=== PATIENT | female | born 1975 | race Caucasian/White ===

== ENCOUNTER → 2018-04-19 | Outpatient (CLI) | payer BC ==
--- NOTE | 2018-04-23 11:17 | MM ---
Reason for exam: screening (asymptomatic). Last mammogram was performed 3 years and 1 month ago. History: Took hormonal contraceptives for 5 years. Physical Findings: A clinical breast exam by your physician is recommended on an annual basis and results should be correlated with mammographic findings. MG 3D Screening Mammo W/Cad Bilateral CC and MLO view(s) were taken. XCCL view(s) were taken of the right breast. Prior study comparison: March 11, 2015, left breast MG work up mamm w CAD LT. March 04, 2015, bilateral MG screening mammo w CAD. There are scattered fibroglandular densities. There is chronic nodularity in the right breast. No significant changes when compared with prior studies. ASSESSMENT: Negative, BI-RAD 1 RECOMMENDATION: Routine screening mammogram of both breasts in 1 year.
== END | disposition home or self-care (01) ==
LOC: RADMAMWWP 07:02
PROVIDERS: ATTEND Family Medicine
DX: Z12.31 Encounter for screening mammogram for malignant neoplasm of breast (principal)
CPT/HCPCS: 77063; 77067

== ENCOUNTER → 2021-03-02 | Outpatient (CLI) | payer OTHER ==
--- NOTE | 2021-03-07 08:22 | MM ---
Reason for exam: screening (asymptomatic). Last mammogram was performed 2 years and 10 months ago. History: Took hormonal contraceptives for 5 years. Physical Findings: A clinical breast exam by your physician is recommended on an annual basis and results should be correlated with mammographic findings. MG Screening Mammo w CAD Bilateral CC and MLO view(s) were taken. Prior study comparison: April 19, 2018, bilateral MG 3d screening mammo w/cad. March 11, 2015, left breast MG work up mamm w CAD LT. There are scattered fibroglandular densities. No significant changes when compared with prior studies. ASSESSMENT: Benign, BI-RAD 2 RECOMMENDATION: Routine screening mammogram of both breasts in 1 year.
== END | disposition home or self-care (01) ==
LOC: RADMAMWWP 14:52
PROVIDERS: ATTEND Family Medicine
DX: Z12.31 Encounter for screening mammogram for malignant neoplasm of breast (principal); Z79.3 Long term (current) use of hormonal contraceptives
CPT/HCPCS: 77067

== ENCOUNTER → 2022-03-14 | Outpatient (CLI) | payer OTHER ==
--- NOTE | 2022-03-14 14:54 | XR ---
Bilateral feet and bilateral ankles HISTORY: M0609 M542 [id number] 3 views of the right foot, 3 views the left foot, 3 views of the right ankle, 3 views of the left ank le submitted Bone mineralization, joint spaces and alignment are maintained. No evident fracture or dislocation. A ccessory navicular bone is noted within the right foot. No evident bone erosions. Some spurring noted at the talonavicular joint on the right. IMPRESSION: Normal feet and ankles
--- NOTE | 2022-03-14 15:02 | XR ---
Bilateral wrists and bilateral hands HISTORY: M0609 M542 M5459 4 views of each wrist, 3 views of each hand submitted Bone mineralization, joint spaces and alignment are maintained. No fracture or dislocation. IMPRESSION: Normal wrists and hands
--- NOTE | 2022-03-14 15:09 | XR ---
Lumbosacral spine HISTORY: M0609 M542 [id number] 5 views of lumbosacral spine Lumbar vertebral bodies show preserved height, alignment, and bone mineralization. No evident spondyl olysis or spondylolisthesis. Spondylosis is present at multiple levels, loss of disc height present L 2-3 and L3-4, L5-S1. Sclerosis in the posterior elements of the lower lumbar spine is consistent with facet arthropathy. Minimal retrolisthesis grade 1 L5-S1. IMPRESSION: Degenerative disc disease and facet arthropathy.
--- NOTE | 2022-03-14 15:38 | XR ---
Cervical spine HISTORY: M0609 M567 [id number] 5 views of the cervical spine There is spondylosis at C4-5, C5-6 with associated loss of disc height, there is reversal the normal cervical lordosis. Prevertebral soft tissues are normal. Cervical vertebral bodies show preserved hei ght and bone mineralization. No fracture or subluxation. Suspect some mild foraminal encroachment C5- 6 bilaterally. IMPRESSION: Degenerative disc disease, neural foraminal encroachment, reversal of normal cervical lara dosis can be seen in patients with muscle spasm.
--- NOTE | 2022-03-14 15:39 | XR ---
AP pelvis HISTORY:M0609 M542 M5459 Frontal view the pelvis, no comparisons Bone mineralization, joint spaces and alignment are maintained. Sacroiliac joints are intact. Probabl e vascular calcifications noted within the pelvis. There may be a slight lumbar spinal curvature. IMPRESSION: No significant abnormalities are evident.
== END | disposition home or self-care (01) ==
LOC: RADXRMAIN 13:09
PROVIDERS: ATTEND Internal Medicine Rheumatology
DX: M06.09 Rheumatoid arthritis without rheumatoid factor, multiple sites (principal); M51.26 Other intervertebral disc displacement, lumbar region; M47.816 Spondylosis without myelopathy or radiculopathy, lumbar region; M50.30 Other cervical disc degeneration, unspecified cervical region; M99.71 Connective tissue and disc stenosis of intervertebral foramina of cervical region
CPT/HCPCS: 72050; 72110; 72170

== ENCOUNTER → 2023-10-12 | Outpatient (CLI) | payer BC ==
[2023-10-12 15:08] LABS: Basophils # (A) 0.06 X 10*3/uL (0.00-0.10); Basophils % (A) 0.8 %; Eosinophils # (A) 0.12 X 10*3/uL (0.04-0.35); Eosinophils % (A) 1.5 %; HCT 43.5 % (37.2-46.3); HGB 14.7 g/dL (12.0-15.0); Lymphocytes # (A) 2.86 X 10*3/uL (0.90-5.00); Lymphocytes % (A) 35.8 %; MCH 31.2 pg (27.0-32.0); MCHC 33.8 g/dL (32.0-37.0); MCV 92.4 FL (80.0-97.0); Mean Platelet Volume 10.7 FL (9.5-12.2); Monocytes # (A) 0.46 X 10*3/uL (0.20-1.00); Monocytes % (A) 5.8 %; NRBC Per 100 WBC 0 X 10*3/uL (0.00-0.01); Neutrophils # (A) 4.47 X 10*3/uL (1.80-7.70); Neutrophils % (A) 55.8 %; Platelet Count 305 X 10*3/uL (140-440); RBC 4.71 X 10*6/uL (4.10-5.20); RDW 13.2 % (11.5-14.5); WBC 7.99 X 10*3/uL (4.50-10.00)
== END | disposition home or self-care (01) ==
LOC: LABPAT 10:58
PROVIDERS: ATTEND Obstetrics & Gynecology
DX: Z01.818 Encounter for other preprocedural examination (principal); R94.31 Abnormal electrocardiogram [ECG] [EKG]; R00.1 Bradycardia, unspecified
CPT/HCPCS: 36415; 85025; 93005

== ENCOUNTER 2023-10-22 07:04 | Day surgery (SDC) | payer BC, OTHER ==
[2023-10-18 11:38] VITALS: BMI 37.5
--- NOTE | 2023-10-21 10:51 | P.HPOB ---
History of Present Illness H&P Date: 10/21/23 Chief Complaint: Menorrhagia with irregular cycle This is a 48-year-old female 3 para 3 who presents for dilation and curettage with hysteroscopy due to endometrial thickening on ultrasound and menorrhagia with irregular cycle. She stated she had regular cycles up until May and then started to have 2 cycles a month. When she called in early September, she had been bleeding for 3 weeks with heavy flow and some tissue like discharge. She also complained of a lot of pelvic pressure and worsening leakage with coughing. Her pelvic ultrasound showed a uterus measuring 13 x 6.4 x 6.1 cm with an endometrial thickness of 1.73 cm. She did have 2 fibroids 1 was 3.4 cm on the left subserosal area and another 1 was 1.3 cm in the intramural posterior area. She also had a simple 2 cm left ovarian cyst. The patient does have a history of a previous endometrial ablation in 2010. Obstetrical history: . History of 3 vaginal deliveries. Gynecologic history: No history of sexually transmitted diseases. She does have a history of a tubal ligation and endometrial ablation. Social history: She is . She works in occupational therapy. Review of Systems Constitutional: Reports fatigue, Denies chills, Denies fever Eyes: denies blurred vision, denies pain Ears, nose, mouth and throat: Reports headache, Reports vertigo, Denies sore throat Cardiovascular: Denies chest pain, Denies shortness of breath Respiratory: Denies cough Gastrointestinal: Denies abdominal pain, Denies diarrhea, Denies nausea, Denies vomiting Genitourinary: Reports menorrhagia Menstruation: Reports menses 8 or > days, Reports menses variable, Reports period heavy Musculoskeletal: Reports myalgias Integumentary: Denies pruritus, Denies rash Psychiatric: Reports anxiety, Reports irritability Past Medical History Past Medical History: Diabetes Mellitus, Hypertension, Rheumatoid Arthritis (RA) Additional Past Medical History / Comment(s): takes metformin as a "preventative" for diabetes History of Any Multi-Drug Resistant Organisms: ESBL Date of last positivie culture/infection: 06/09/21 MDRO Source:: ESBL URINE Past Surgical History: Orthopedic Surgery, Tubal Ligation, Uterine Ablation Additional Past Surgical History / Comment(s): lasik eye surgery, Rt. knee arthroscopy x 2 Past Anesthesia/Blood Transfusion Reactions: No Reported Reaction Past Psychological History: Anxiety Smoking Status: Never smoker Past Alcohol Use History: Occasional Past Drug Use History: None Reported - Past Family History Father Family Medical History: No Reported History Medications and Allergies Home Medications Medication Instructions Recorded Confirmed Type Cholecalciferol (Vitamin D3) 1,250 mcg PO Q7D 10/18/23 10/18/23 History [Vitamin D3 (1250 Mcg = 50,000 Iu)] Metoprolol Succinate (ER) [Toprol 100 mg PO DAILY 10/18/23 10/18/23 History Xl] lisinopriL [Zestril] 5 mg PO DAILY 10/18/23 10/18/23 History metFORMIN HCL ER [Glucophage XR] 500 mg PO DAILY 10/18/23 10/18/23 History Allergies Allergy/AdvReac Type Severity Reaction Status Date / Time No Known Allergies Allergy Verified 10/18/23 10:59 Exam Osteopathic Statement: *. No significant issues noted on an osteopathic structural exam other than those noted in the History and Physical/Consult. HEENT: Within normal limits Heart: Regular rate and rhythm Lungs: Clear to auscultation bilaterally Abdomen: Soft, nontender Pelvic exam: Uterus is slightly enlarged, nontender, with no adnexal masses or tenderness noted. She did have a first-degree cystocele with slightly hypermobile urethra with Valsalva. Extremities: Negative Homans Assessment and Plan (1) Menorrhagia with irregular cycle Status: Acute Code(s): N92.1 - EXCESSIVE AND FREQUENT MENSTRUATION WITH IRREGULAR CYCLE SNOMED Code(s): 613216995 (2) Endometrial thickening on ultrasound Status: Acute Code(s): R93.89 - ABNORMAL FINDINGS ON DX IMAGING OF OTH BODY STRUCTURES SNOMED Code(s): 235925305 Plan: Proceed with dilation and curettage with hysteroscopy. I have discussed the risks, benefits, and alternative therapies for the above- mentioned procedure and for both sedation/anesthesia as well as necessary blood products administration, if indicated, as they pertain to this patient. The patient has indicated her understanding and acceptance of the risks and procedures discussed.
[~2023-10-22 07:04] MED LIST: Pre Op ABX Message 1 EACH MISC MISCELLANE ONE
[2023-10-22 07:39] LABS: Glucose,Whole Blood 108 mg/dL (70-110)
[2023-10-22] MEDS: ONDANSETRON 4 MG/2 ML VIAL ONE (07:41)
[2023-10-22] MEDS: LACTATED RINGERS 1,000 ML IV ONE (07:41)
[2023-10-22] MEDS: DEXAMETHASONE SOD PHOSPHATE 4 MG/ML 1 ML VIAL IVP ONE (07:42)
[2023-10-22] MEDS ORDERED: LIDOCAINE 1% INJ 10MG/ML (20 ML MDV) ONE (08:15)
[2023-10-22] MEDS ORDERED: KETOROLAC 15 MG/ML 1 ML VIAL ONE (08:15)
[2023-10-22] MEDS ORDERED: PROPOFOL 10 MG/ML 20 ML VIAL IV ONE (08:15)
[2023-10-22] MEDS ORDERED: MIDAZOLAM 2 MG/2 ML VIAL ONE (08:15)
[2023-10-22 08:32] VITALS: RESP 16
--- NOTE | 2023-10-22 08:47 | P.OP ---
Date of Procedure: 10/22/23 Preoperative Diagnosis: Menorrhagia with irregular cycle Endometrial thickening on ultrasound History of previous endometrial ablation Postoperative Diagnosis: Same Procedure(s) Performed: Dilation and curettage with hysteroscopy Anesthesia: SUSAN Surgeon: Carrie Gallegos Estimated Blood Loss (ml): 5 Pathology: other (Endometrial curettings) Condition: stable Disposition: floor Indications for Procedure: This is a 48-year-old female 3 para 3 who presents for dilation and curettage with hysteroscopy due to endometrial thickening on ultrasound and menorrhagia with irregular cycle. She stated she had regular cycles up until May and then started to have 2 cycles a month. When she called in early September, she had been bleeding for 3 weeks with heavy flow and some tissue like discharge. She also complained of a lot of pelvic pressure and worsening leakage with coughing. Her pelvic ultrasound showed a uterus measuring 13 x 6.4 x 6.1 cm with an endometrial thickness of 1.73 cm. She did have 2 fibroids 1 was 3.4 cm on the left subserosal area and another 1 was 1.3 cm in the intramural posterior area. She also had a simple 2 cm left ovarian cyst. The patient does have a history of a previous endometrial ablation in 2010. Operative Findings: Uterus is sounded to 11 cm. Uterus is midposition. Upon hysteroscopy, a dyssynchronous endometrial pattern is polypoid type change. Neither tubal ostia is completely visualized. A large amount of endometrial curettings are obtained. Description of Procedure: Patient is taken to the operating room where she is placed in the dorsal lithotomy position. She is prepped and draped in the normal sterile fashion. Her bladder is drained with a catheter. Examination is performed under anesthesia. Uterus is found to be mid position with no adnexal masses palpated. Next a weighted speculum was placed in the patient's vagina and a right angle retractor was used to visualize the cervix. The anterior lip of the cervix is grasped with an Allis clamp. The cervix is slightly dilated with Marroquin dilators and then a sound is placed. Uterus is sounded to 11 cm. Cervix is then gently dilated further and hysteroscopy was performed using normal saline. The above noted findings are made and pictures are taken. The scope was withdrawn. Next a polyp forcep was introduced with minimal polypoid type tissue obtained. Next a medium-size sharp curet was introduced and sharp curettage was performed until a gritty texture was noted. Slightly irregular contour was palpated. A large amount of tissue was obtained. Allis clamp is removed from the anterior lip of the cervix. No active bleeding is noted. All instruments are removed from the vagina. Specimen is sent to pathology labeled endometrial curettings. Patient is taken to recovery room in stable condition.
[2023-10-22 09:09] VITALS: TEMP 96.8
[2023-10-22 09:10] LABS: Glucose,Whole Blood 108 mg/dL (70-110)
[2023-10-22 10:19] VITALS: BP 144/95; PULSE 58
== END 2023-10-22 10:01 | disposition home or self-care (01) ==
LOC: OR 07:04
PROVIDERS: ATTEND Obstetrics & Gynecology
DX: N92.1 Excessive and frequent menstruation with irregular cycle (principal); E11.9 Type 2 diabetes mellitus without complications; M06.9 Rheumatoid arthritis, unspecified; I10 Essential (primary) hypertension; F41.9 Anxiety disorder, unspecified; Z79.899 Other long term (current) drug therapy; Z79.84 Long term (current) use of oral hypoglycemic drugs
CPT/HCPCS: 58558; 81025; 88305; J2250; J1100; J2405; J2001; J1885; J2704

== ENCOUNTER → 2024-02-13 | Outpatient (CLI) | payer BC ==
--- NOTE | 2024-02-14 08:33 | MM ---
Reason for Exam: Screening (asymptomatic). Last mammogram was performed 2 year(s) and 11 month(s) ago. Patient History: Menarche at age 10. First Full-Term at age 23. Patient used Hormonal Contraceptives for 5 years. Last menstrual period: 12/05/2023 Risk Values: Emily 5 year model risk: 1.1%. NCI Lifetime model risk: 9.9%. Prior Study Comparison: 03/11/2015 Left Diagnostic Mammogram, [facility]. 04/19/2018 Bilateral Screening Mammogram, [facility]. 03/02/2021 Bilateral Screening Mammogram, [facility]. Tissue Density: The breasts are heterogeneously dense, which may obscure small masses. Findings: Analyzed By CAD. There is no suspicious group of microcalcifications or new suspicious mass in either breast. Overall Assessment: Benign, BI-RAD 2 Management: Screening Mammogram of both breasts in 1 year. . Patient should continue monthly self-breast exams. A clinical breast exam by your physician is recommended on an annual basis. This exam should not preclude additional follow-up of suspicious palpable abnormalities. Note on Emily scores and lifetime risk: 1. A Emily score greater than 3% is considered moderate risk. If this is the case, consider specialist referral to assess eligibility for a risk reducing agent. 2. If overall lifetime risk for the development of breast cancer is 20% or higher, the patient may qualify for future screening with alternating mammogram and breast MRI. Electronically signed and approved by: Bao Alvarez M.D. Radiologis
== END | disposition home or self-care (01) ==
LOC: RADMAMWWP 16:38
PROVIDERS: ATTEND Family Medicine
DX: Z12.31 Encounter for screening mammogram for malignant neoplasm of breast (principal)
CPT/HCPCS: 77063; 77067

== ENCOUNTER → 2024-02-13 | Outpatient (CLI) | payer BC ==
--- NOTE | 2024-02-14 08:33 | XR ---
EXAMINATION TYPE: XR chest 2V DATE OF EXAM: 02/13/2024 6:15 PM CLINICAL INDICATION:Female, 48 years old with history of R05.9 COUGH, UNSPECIFIED; [facility] COMPARISON: None TECHNIQUE: XR chest 2V Frontal and lateral views of the chest. FINDINGS: Lungs/Pleura: There is no evidence of pleural effusion, focal consolidation, or pneumothorax. Pulmonary vascularity: Unremarkable. Heart/mediastinum: Cardiomediastinal silhouette is unremarkable. Musculoskeletal: No acute osseous pathology. IMPRESSION: No acute cardiopulmonary disease/process.
== END | disposition home or self-care (01) ==
LOC: RADXRMAIN 17:28
PROVIDERS: ATTEND Family Medicine
DX: R05.9 Cough, unspecified (principal)
CPT/HCPCS: 71046

== ENCOUNTER → 2024-08-21 | Outpatient (CLI) | payer BC ==
[2024-08-21 10:54] LABS: Basophils # (A) 0.06 X 10*3/uL (0.00-0.10); Basophils % (A) 0.8 %; Eosinophils # (A) 0.26 X 10*3/uL (0.04-0.35); Eosinophils % (A) 3.3 %; HCT 42.2 % (37.2-46.3); HGB 13.7 g/dL (12.0-15.0); Lymphocytes # (A) 3.42 X 10*3/uL (0.90-5.00); MCHC 32.5 g/dL (32.0-37.0); MCV 89.4 FL (80.0-97.0); Mean Platelet Volume 10.1 FL (9.5-12.2); Monocytes # (A) 0.56 X 10*3/uL (0.20-1.00); NRBC Per 100 WBC 0 X 10*3/uL (0.00-0.01); Neutrophils # (A) 3.62 X 10*3/uL (1.80-7.70); Neutrophils % (A) 45.5 %; Platelet Count 299 X 10*3/uL (140-440); RBC 4.72 X 10*6/uL (4.10-5.20); RDW 12.8 % (11.5-14.5); WBC 7.95 X 10*3/uL (4.50-10.00)
[2024-08-21 11:12] LABS: Blood Urea Nitrogen 9.2 mg/dL (9.0-27.0); Chloride 107 mmol/L (96-109); Chol/HDL Ratio 4.67 Ratio; Glucose 118 mg/dL (70-110); LDL Cholesterol,Calculated 119.9 mg/dL (0.0-131.0); Potassium 4.1 mmol/L (3.5-5.5); Sodium 141 mmol/L (135-145)
[2024-08-21 11:13] LABS: Calcium 8.8 mg/dL (8.7-10.3); Carbon Dioxide 24.6 mmol/L (21.6-31.8)
== END | disposition home or self-care (01) ==
LOC: LABWHC1 06:50
PROVIDERS: ATTEND Internal Medicine
DX: I10 Essential (primary) hypertension (principal); E66.813 Obesity, class 3; E78.00 Pure hypercholesterolemia, unspecified; E66.01 Morbid (severe) obesity due to excess calories; M79.89 Other specified soft tissue disorders; Z68.41 Body mass index [BMI] 40.0-44.9, adult; R06.00 Dyspnea, unspecified; R00.2 Palpitations
CPT/HCPCS: 36415; 80048; 80061; 83036; 83695; 84443; 85025